=== PATIENT | female | born 1970 | race African-American/Black ===

== ENCOUNTER 2024-02-02 17:42 | Inpatient (IN) | payer BC ==
[~2024-02-02 17:42] MED LIST: Iopamidol-370 76% 500 ML MDV (1 ML CHARGE) ONE
[2024-02-02 20:15] LABS: #Basophils 0.04 10x3/uL (0.0-0.2); %Basophils 0.6 % (0.0-1.0); %Eosinophils 1.3 % (0.0-10.0); %Lymphocytes 32.8 % (21.0-51.0); %Monocytes 9.1 % (0.0-10.0); %Neutrophils 56.1 % (42.0-75.0); Hematocrit 40.6 % (36.0-47.0); Hemoglobin 12.9 g/dL (12.0-16.0); Mean Corpuscular HGB CONC 31.8 g/dL (32.0-36.0); Mean Corpuscular Hemoglobin 27.9 pg (27.0-31.0); Mean Corpuscular Volume 87.9 fL (78.0-98.0); Mean Platelet Volume 9.9 fL (7.4-10.4); Platelet Count 286 10x3/uL (130-400); RBC Distribution Width 13.7 % (11.5-14.5); Red Blood Cell (RBC) Count 4.62 mill/uL (4.20-5.40)
[2024-02-02 20:37] LABS: Troponin I Less than 0.010 ng/mL (< 0.028)
[2024-02-02 20:56] LABS: ALT (SGPT) 20 U/L (8-55); AST (SGOT) 19 U/L (5-34); Albumin 3.9 g/dL (3.5-5.0); Alkaline Phosphatase 126 U/L (40-110); Anion Gap 18 mmol/L (10-20); BUN (Urea Nitrogen) 12 mg/dL (9.8-20.1); Calc. Creatinine Clearance 0 mL/min (70-130); Calcium 9.3 mg/dL (7.8-10.44); Carbon Dioxide 18 mmol/L (22-29); Chloride 113 mmol/L (98-107); Estimated GFR 95; Globulin 3.1 g/dL (2.4-3.5); Glucose 58 mg/dL (70-105); Lipase 15 U/L (8-78); Potassium 4.3 mmol/L (3.5-5.1); Sodium 145 mmol/L (136-145)
[2024-02-02] MEDS ORDERED: Ondansetron PF 4 MG/2 ML Vial ONE (23:21)
[2024-02-03] MEDS ORDERED: Ipratropium/Albuterol 3 ML NEB NEB PRN (02:50)
[2024-02-03] MEDS: Dextrose 5 %-0.45 % NaCl 1,000 ML IV SCH ×2 (03:37→03:45)
[2024-02-03] MEDS ORDERED: Ondansetron PF 4 MG/2 ML Vial IVP PRN (03:47)
[2024-02-03] MEDS ORDERED: Acetaminophen 325 MG TAB PO PRN (03:47)
[2024-02-03] MEDS ORDERED: Glucagon 1 MG/ML KIT IM PRN (04:02)
[2024-02-03] MEDS ORDERED: Dextrose 5% in Water 1,000 ML IV PRN (04:02)
[2024-02-03] MEDS ORDERED: Dextrose 50% Abboject 50 ML SYRINGE SLOW IVP PRN (04:02)
[2024-02-03] MEDS: Pantoprazole 40 MG VIAL IVP SCH (12:22)
[2024-02-03] MEDS ORDERED: Lidocaine 2% PF 100 mg/5 ml Syringe ONE (16:52)
[2024-02-03] MEDS ORDERED: PROPOFOL 20 ML ONE ×2 (16:52→17:13)
[2024-02-03] MEDS ORDERED: SUGAMMADEX SODIUM 200 MG/2 ML VIAL ONE (16:52)
[2024-02-03] MEDS ORDERED: Rocuronium Bromide 10 MG/ML (10ML VIAL) ONE (16:52)
[2024-02-03] MEDS ORDERED: Midazolam HCl 2 mg/2 ml Vial ONE (16:55)
[2024-02-03] MEDS ORDERED: fentaNYL 50 mcg/mL 1 mL Vial ONE (17:24)
[2024-02-04 04:55] LABS: #Basophils 0.04 10x3/uL (0.0-0.2); %Basophils 0.7 % (0.0-1.0); %Eosinophils 2.8 % (0.0-10.0); %Lymphocytes 43.7 % (21.0-51.0); %Monocytes 11.1 % (0.0-10.0); %Neutrophils 41.5 % (42.0-75.0); Hematocrit 33.4 % (36.0-47.0); Hemoglobin 10.9 g/dL (12.0-16.0); Mean Corpuscular HGB CONC 32.6 g/dL (32.0-36.0); Mean Corpuscular Hemoglobin 28.1 pg (27.0-31.0); Mean Corpuscular Volume 86.1 fL (78.0-98.0); Mean Platelet Volume 10.2 fL (7.4-10.4); Platelet Count 237 10x3/uL (130-400); RBC Distribution Width 13.7 % (11.5-14.5); Red Blood Cell (RBC) Count 3.88 mill/uL (4.20-5.40)
[2024-02-04 05:28] LABS: Anion Gap 9 mmol/L (10-20); BUN (Urea Nitrogen) 5 mg/dL (9.8-20.1); Calc. Creatinine Clearance 0 mL/min (70-130); Calcium 7.5 mg/dL (7.8-10.44); Carbon Dioxide 20 mmol/L (22-29); Chloride 115 mmol/L (98-107); Estimated GFR 104; Glucose 91 mg/dL (70-105); Potassium 3.3 mmol/L (3.5-5.1); Sodium 141 mmol/L (136-145)
[2024-02-04] MEDS: Potassium Bicarbonate/Cit Ac 20 MEQ TAB PO SCH (08:23)
[2024-02-04] MEDS: Pantoprazole 40 MG VIAL IVP SCH (08:24)
[2024-02-04] MEDS: Potassium Chloride 20 MEQ in Premix 1 BAG IVPB SCH ×2 (09:55→16:20)
[2024-02-04 20:40] VITALS: BP 115/68; TEMP 98.2
== END 2024-02-04 21:31 | disposition home or self-care (01) | DRG 394 ==
LOC: ERS 17:42 → T4-A 02-03 02:12 → OBSVTOIN 02-03 10:05
PROVIDERS: ADMIT Student in an Organized Health Care Education/Training Program; ATTEND Internal Medicine
PROC: 0DC68ZZ Extirpation of Matter from Stomach, Via Natural or Artificial Opening Endoscopic (ICD-10-PCS; principal; 2024-02-03)
DX: T18.128A Food in esophagus causing other injury, initial encounter (principal); K56.1 Intussusception; W44.F3XA Food entering into or through a natural orifice, initial encounter; E16.2 Hypoglycemia, unspecified; E87.6 Hypokalemia; J45.909 Unspecified asthma, uncomplicated; E66.9 Obesity, unspecified; Z88.1 Allergy status to other antibiotic agents; Z98.84 Bariatric surgery status; Z90.49 Acquired absence of other specified parts of digestive tract
CPT/HCPCS: 36415; 36416; 71045; 74177; 80048; 80053; 83690; 83735; 84484; 85025; 93005; 96361; 96374; G0378; J2003; J2250; J2405; J2470; J2704; J3010; J3480; J7042; Q9967